=== PATIENT | male | born 1955 | race Caucasian/White ===

== ENCOUNTER 2016-11-02 12:38 | Emergency (ER) | payer OTHER ==
[~2016-11-02 12:38] MED LIST: NAPROSYN500 MG; NO MEDICATIONS; VOLTAREN75 MG PO
== END 2016-11-02 12:45 | disposition home or self-care (01) ==
LOC: CED 12:38
DX: Z53.21 Procedure and treatment not carried out due to patient leaving prior to being seen by health care provider (principal)

== ENCOUNTER 2016-11-02 14:53 | Emergency (ER) | payer OTHER ==
--- NOTE | ~2016-11-02 | CR63 ---
[facility] A Service of [facility] RADIOLOGY TEXT RESULTS PATIENT: MATTHEW SHERIDAN LOCATION: SED : 59 UNIT #: [id number] AGE: [address]: Mireya Avila APRN SEX: M ORDER DR: [id number] [place] [id number] MR#: [id number] Acc #: [id number] NAME: MATTHEW SHERIDAN : 1955 SEX: M STUDY DATE/TIME: 11/02/2016 14:31 UNIT: SED ROOM: STUDY DESCRIPTION: CR Chest 2 View Attending Physician: Mireya Avila A.P.R.N. Ordering Physician: Mireya Avila A.P.R.N. Primary Care Physician: No Primary Care Physician MEDICAL IMAGING REPORT This report is preliminary unless electronic signature is present. EXAM Chest PA and lateral. DATE OF EXAMINATION 11/02/2016 COMPARISONS None HISTORY Chest pain, cough, shortness of breath, body sweats since Sunday. FINDINGS Cardiac size in the patient is normal. 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 No acute-appearing infiltrates are seen. No nodules or masses are seen. CONCLUSION COPD. Right apical fibrosis and scarring. Dictated by... Robe Gutierrez M.D. THIS IS AN ELECTRONICALLY VERIFIED REPORT Robe Gutierrez M.D. at 11/02/2016 4:01 PM MARY ALICE/igor TD: 11/02/2016 15:52 JOB #: [id number] [facility] A Service of [facility] RADIOLOGY TEXT RESULTS PATIENT: MATTHEW SHERIDAN LOCATION: SED : 59 UNIT #: [id number] AGE: [address]: Miryea Avila APRN SEX: M ORDER DR: MEDICAL IMAGING REPORT Page 1 of 1
--- NOTE | ~2016-11-02 | EKG ---
PATIENT: MATTHEW SHERIDAN UNIT #: [id number] Ventricular Rate: 66 BPM Atrial Rate: 66 BPM P-R Interval: 140 ms QRS Duration: 90 ms Q-T Interval: 386 ms QTC Calculation(Bezet): 404 ms P [place]: 70 degrees Calculated R [place]: 69 degrees Calculated T [place]: 62 degrees Diagnosis Line: Normal sinus rhythm Diagnosis Line: Normal ECG Diagnosis Line: No previous ECGs available Diagnosis Line: Confirmed by NILAM FINN MD ([id number]) on Diagnosis Line: 11/04/2016 12:03:50 PM INTERPRETING MD: AAKASH MATIAS
[2016-11-02 14:41] LABS: BASOPHIL% 0.6 % (0-2.5); HEMATOCRIT 45.6 % (38.0-50.0); HEMOGLOBIN 15.4 gm/dL (13.0-16.0); MEAN CELL VOLUME 96.7 FL (83-96); MEAN CORPUSCULAR HEMOGLOBIN 32.6 PG (28-34); MEAN CORPUSCULAR HGB CONC 33.7 g/dL (30-36); MEAN PLATELET VOLUME 10.1 FL (6.5-11.5); MONOCYTE# 0.4 X10e3 (0-1.0); MONOCYTE% 12.5 % (3.0-12.0); NEUTROPHIL# 1.6 X10e3 (1.5-7.1); NEUTROPHIL% 52.9 % (40-75); RED BLOOD COUNT 4.72 X10e (3.90-5.60); RED CELL DISTRIBUTION WIDTH 13.3 % (11.0-15.5)
[2016-11-02 14:46] LABS: POC - CKMB <1.0 ng/mL (0.0-7.9); POC - TROPONIN <0.05 ng/mL (<=0.05)
[2016-11-02 15:01] LABS: CALCIUM SERUM 8.5 mg/dL (8.4-10.2); POTASSIUM 3.6 mmol/L (3.5-5.1)
[2016-11-02 15:09] LABS: DIFF IND NO
[2016-11-02 15:10] LABS: PLATELET COUNT 88 X10e3 (140-420)
== END 2016-11-02 16:15 | disposition home or self-care (01) ==
LOC: SED 14:53
PROVIDERS: Nurse Practitioner
DX: J20.9 Acute bronchitis, unspecified (principal); J02.9 Acute pharyngitis, unspecified; J06.9 Acute upper respiratory infection, unspecified; F17.210 Nicotine dependence, cigarettes, uncomplicated
CPT/HCPCS: 36415; 71020; 80048; 82553; 84484; 85025; 90471; 90715; 93005; 94640; 96361; 96374; 99284; J2930